=== PATIENT | female | born 1995 | race Caucasian/White ===

== ENCOUNTER 2018-08-20 22:39 | Emergency (ER) | payer OTHER ==
[2018-08-20] MEDS ORDERED: ONDANSETRON 4 MG/2 ML VIAL IVP ONE (22:41)
[2018-08-20] MEDS ORDERED: NS 1,000 ML IV ONE (22:41)
--- NOTE | 2018-08-20 22:43 | EDPHY ---
H & P Time Seen by Provider: 08/20/18 22:42 HPI/ROS: HPI CHIEF COMPLAINT: Alcohol Intoxication HISTORY OF PRESENT ILLNESS: This is a 23-year-old female, presents to the emergency room with acute alcohol intoxication and vomiting. Patient had multiple margaritas tonight. She is unsure exactly how many margaritas she had tonight however this caused her to become intoxicated and having nausea and vomiting. She was brought to the emergency room due to vomiting. She has no complaints. She is feeling better. She also reports she had green chili, does not typically eat this. This may have contributed to her vomiting. Past Medical History: Denies medical history Past Surgical History: Denies surgical history Social History: [employer] student, alcohol this evening. Family History: Noncontributory ROS REVIEW OF SYSTEMS: 10 Systems were reviewed and negative with the exception of the elements mentioned in the history of present illness. Exam Constitutional Intoxicated, triage nursing summary reviewed, vital signs reviewed,smells of alcohol Eyes normal conjunctivae and sclera, horizontal beating nystagmus consistent acute alcohol intoxication, otherwise pupils equal and react to light HENT normal inspection, atraumatic, moist mucus membranes, no epistaxis, neck supple/ no meningismus, no raccoon eyes. Respiratory clear to auscultation bilaterally, normal breath sounds, no respiratory distress, no wheezing. Cardiovascular rate normal, regular rhythm, no murmur, no edema, distal pulses normal. Gastrointestinal soft, non-tender, no rebound, no guarding, normal bowel sounds, no distension, no pulsatile mass. Genitourinary no CVA tenderness. Musculoskeletal no midline vertebral tenderness, full range of motion, no calf swelling, no tenderness of extremities, no meningismus, good pulses, neurovascularly intact. Skin pink, warm, & dry, no rash, skin atraumatic. Neurologic ntoxicated with alcohol,, alert and oriented x 3, AAOx3, moves all 4 extremities equally, motor intact, sensory intact, CN II-XII intact, , normal vision, normal speech. Psychiatric normal mood/affect. Heme/Lymph/Immune no lymphadenopathy. Differential Diagnosis: Includes but is not limited to in a particular order acute alcohol intoxication, alcohol abuse, dehydration, electrolyte abnormality , nausea vomiting from acute alcohol intoxication Medical Decision Making: Plan for this patient IV establishment IV fluid bolus IV Zofran as needed for nausea vomiting, electrolytes, serum alcohol level, monitor for worsening of condition. Once patient is more sober believe she can be safely discharged from the emergency room. Re-evaluation: ETOH - [id number]: Patient here in emergency room resting comfortably no acute distress, she is not vomiting she tolerated ice chips. She ambulated well throughout the emergency without any difficulty. Her parents at bedside would like to take her home. She is clinically sober. We discussed return precautions. Return emergency room if worsening symptoms. Patient ambulated well, clinically sober, stable for discharge Source: Patient, EMS Exam Limitations: Intoxication Constitutional: Initial Vital Signs Temperature (C) 36.6 C 08/20/18 22:42 Heart Rate 94 08/20/18 22:42 Respiratory Rate 16 08/20/18 22:42 Blood Pressure 130/92 H 08/20/18 22:42 O2 Sat (%) 97 08/20/18 22:42 O2 Delivery Mode Room Air Allergies/Adverse Reactions: No Known Allergies Allergy (Unverified 08/20/18 22:45) Home Medications: Medication Instructions Recorded NK [No Known Home Meds] 08/20/18 Medical Decision Making - Data Points Laboratory Results: Laboratory Results 08/20/18 22:50 08/20/18 22:50 08/20/18 08/20/18 22:50 22:50 WBC 7.66 10^3/uL 10^3/uL (3.80-9.50) RBC 4.73 10^6/uL 10^6/uL (4.18-5.33) Hgb 13.0 g/dL g/dL (12.6-16.3) Hct 39.5 % % (38.0-47.0) MCV 83.5 fL fL (81.5-99.8) MCH 27.5 pg L pg (27.9-34.1) MCHC 32.9 g/dL g/dL (32.4-36.7) RDW 13.0 % % (11.5-15.2) Plt Count 251 10^3/uL 10^3/uL (150-400) MPV 10.0 fL fL (8.7-11.7) Neut % (Auto) 44.7 % % (39.3-74.2) Lymph % (Auto) 46.6 % H % (15.0-45.0) Trigg % (Auto) 5.9 % % (4.5-13.0) Eos % (Auto) 2.2 % % (0.6-7.6) Baso % (Auto) 0.5 % % (0.3-1.7) Nucleat RBC Rel Count 0.0 % % (0.0-0.2) Absolute Neuts (auto) 3.42 10^3/uL 10^3/uL (1.70-6.50) Absolute Lymphs (auto) 3.57 10^3/uL H 10^3/uL (1.00-3.00) Absolute Monos (auto) 0.45 10^3/uL 10^3/uL (0.30-0.80) Absolute Eos (auto) 0.17 10^3/uL 10^3/uL (0.03-0.40) Absolute Basos (auto) 0.04 10^3/uL 10^3/uL (0.02-0.10) Absolute Nucleated RBC 0.00 10^3/uL 10^3/uL (0-0.01) Immature Gran % 0.1 % % (0.0-1.1) Immature Gran # 0.01 10^3/uL 10^3/uL (0.00-0.10) Sodium 139 mEq/L mEq/L (135-145) Potassium 3.9 mEq/L mEq/L (3.5-5.2) Chloride 106 mEq/L mEq/L (97-110) Carbon Dioxide 21 mEq/l L mEq/l (22-31) Anion Gap 12 mEq/L mEq/L (6-14) BUN 5 mg/dL L mg/dL (7-23) Creatinine 0.6 mg/dL mg/dL (0.6-1.0) Estimated GFR > 60 Glucose 111 mg/dL H mg/dL (70-100) Calcium 8.6 mg/dL mg/dL (8.5-10.4) Ethyl Alcohol 154 mg/dL H mg/dL (0-10) Medications Given: Discontinued Medications Sodium Chloride (Ns) 1,000 mls @ 0 mls/hr IV EDNOW ONE; Wide Open PRN Reason: Protocol Stop: 08/20/18 22:42 Last Admin: 08/20/18 22:45 Dose: 1,000 mls Departure - Departure Disposition: Home, Routine, Self-Care Clinical Impression: Alcoholic intoxication Qualifiers: Complication of substance-induced condition: uncomplicated Qualified Code(s): F10.920 - Alcohol use, unspecified with intoxication, uncomplicated Condition: Good Instructions: Alcohol Intoxication (ED) Additional Instructions: 1. Gardiner diet no spicy fatty greasy foods over the next 24-48 hours. 2. Clear liquids and advance diet slowly. 3. Return if worse. Referrals: Patient,NotPresent [Primary Care Provider] - As per Instructions MARY ANN Shaw,. [Clinic] - As per Instructions
[2018-08-20 22:56] LABS: PLATELET COUNT 251 10^3/uL (150-400)
[2018-08-21 01:04] VITALS: BP 113/87
== END 2018-08-21 01:16 | disposition home or self-care (01) ==
LOC: EDUNIT#
DX: F10.920 Alcohol use, unspecified with intoxication, uncomplicated (principal); E86.9 Volume depletion, unspecified
CPT/HCPCS: G0480; J2405